=== PATIENT | male | born 1945 | race Caucasian/White ===

== ENCOUNTER → 2017-08-11 | Outpatient (CLI) | payer OTHER, MEDICARE ==
[2017-08-11 12:09] LABS: MEAN CORPUSCULAR HEMOGLOBIN 31.5 pg (27.0-33.0); MEAN CORPUSCULAR HGB CONC 33.8 g/dl (32.0-36.5); RED CELL DISTRIBUTION WIDTH 13.9 % (11.5-14.5); WHITE BLOOD COUNT 5.2 K/mm3 (4.0-10.0)
[2017-08-11 12:47] LABS: ALBUMIN 3.8 GM/DL (3.2-5.2); ALBUMIN/GLOBULIN RATIO 1.23 (1.00-1.93); ALKALINE PHOSPHATASE 62 U/L (45-117); ALT/SGPT 34 U/L (12-78); ANION GAP 8 MEQ/L (8-16); AST/SGOT 22 U/L (15-37); BILIRUBIN,TOTAL 0.6 MG/DL (0.2-1.0); BLOOD UREA NITROGEN 17 MG/DL (7-18); CALCIUM LEVEL 8.8 MG/DL (8.8-10.2); CARBON DIOXIDE LEVEL 27 MEQ/L (21-32); CHLORIDE LEVEL 106 MEQ/L (98-107); CHOLESTEROL LEVEL 211 MG/DL (<200); CREATININE FOR GFR 0.75 MG/DL (0.70-1.30); GLOMERULAR FILTRATION RATE > 60.0 (>42); GLUCOSE, FASTING 104 MG/DL (83-110); POTASSIUM SERUM 4.3 MEQ/L (3.5-5.1); SODIUM LEVEL 141 MEQ/L (136-145); TOTAL PROTEIN 6.9 GM/DL (6.4-8.2); TRIGLYCERIDES LEVEL 85 MG/DL (<150)
== END ==
LOC: M LAB 10:54
PROVIDERS: ATTEND Family Medicine
DX: N40.0 Benign prostatic hyperplasia without lower urinary tract symptoms (principal); I10 Essential (primary) hypertension

== ENCOUNTER → 2017-12-19 | Outpatient (CLI) | payer OTHER, MEDICARE ==
[2017-12-19 14:48] LABS: HEMATOCRIT 44.3 % (42.0-52.0); HEMOGLOBIN 13.8 g/dl (14.0-18.0); MEAN CORPUSCULAR HEMOGLOBIN 27.2 pg (27.0-33.0); MEAN CORPUSCULAR HGB CONC 31.2 g/dl (32.0-36.5); MEAN CORPUSCULAR VOLUME 87.2 fl (80.0-96.0); PLATELET COUNT, AUTOMATED 211 10^3/uL (150-450); RED BLOOD COUNT 5.08 10^6/uL (4.30-6.10); WHITE BLOOD COUNT 6.2 10^3/uL (4.0-10.0)
[2017-12-19 15:07] LABS: ESTIMATED AVERAGE GLUCOSE 123 MG/DL (60-110); HEMOGLOBIN A1c 5.9 %
[2017-12-19 15:21] LABS: TESTOSTERONE 296 NG/DL (241-827)
[2017-12-19 15:24] LABS: ALBUMIN/GLOBULIN RATIO 1.21 (1.00-1.93); ALKALINE PHOSPHATASE 74 U/L (45-117); ALT/SGPT 34 U/L (12-78); ANION GAP 7 MEQ/L (8-16); AST/SGOT 27 U/L (7-37); BILIRUBIN,TOTAL 0.6 MG/DL (0.2-1.0); BLOOD UREA NITROGEN 12 MG/DL (7-18); CALCIUM LEVEL 8.8 MG/DL (8.8-10.2); CARBON DIOXIDE LEVEL 29 MEQ/L (21-32); CHLORIDE LEVEL 104 MEQ/L (98-107); CHOLESTEROL LEVEL 201 MG/DL (<200); CHOLESTEROL RISK RATIO 1.844 (<5); CREATININE FOR GFR 0.82 MG/DL (0.70-1.30); GLOMERULAR FILTRATION RATE > 60.0 (>42); GLUCOSE, FASTING 90 MG/DL (70-100); HDL CHOLESTEROL 109 MG/DL (>40); LDL CHOLESTEROL 71.4 MG/DL (<100); NON-HDL-C 92 MG/DL; POTASSIUM SERUM 4.1 MEQ/L (3.5-5.1); PROSTATIC SPECIFIC AG MONITOR 5.67 NG/ML (< 4.0); SODIUM LEVEL 140 MEQ/L (136-145); TOTAL PROTEIN 7.3 GM/DL (6.4-8.2); TRIGLYCERIDES LEVEL 103 MG/DL (<150)
== END ==
LOC: M LAB 14:05
DX: R53.83 Other fatigue (principal)

== ENCOUNTER → 2018-08-07 | Outpatient (CLI) | payer OTHER, MEDICARE ==
[2018-08-07 12:51] LABS: PROSTATIC SPECIFIC AG MONITOR 5.99 NG/ML (< 4.0)
[2018-08-07 13:54] LABS: TESTOSTERONE 638 NG/DL (241-827)
== END ==
LOC: M LAB 11:49
DX: R53.83 Other fatigue (principal); N40.0 Benign prostatic hyperplasia without lower urinary tract symptoms
CPT/HCPCS: 84403

== ENCOUNTER → 2019-01-04 | Outpatient (CLI) | payer OTHER, MEDICARE ==
[2019-01-04 11:35] LABS: HEMATOCRIT 46.3 % (42.0-52.0); MEAN CORPUSCULAR HEMOGLOBIN 31.1 pg (27.0-33.0); MEAN CORPUSCULAR HGB CONC 32.4 g/dl (32.0-36.5); MEAN CORPUSCULAR VOLUME 96.1 fl (80.0-96.0); PLATELET COUNT, AUTOMATED 204 10^3/uL (150-450); RED BLOOD COUNT 4.82 10^6/uL (4.30-6.10); WHITE BLOOD COUNT 5.6 10^3/uL (4.0-10.0)
[2019-01-04 12:12] LABS: ALBUMIN 3.6 GM/DL (3.2-5.2); ALT/SGPT 28 U/L (12-78); BILIRUBIN,TOTAL 0.6 MG/DL (0.2-1.0); BLOOD UREA NITROGEN 14 MG/DL (7-18); CALCIUM LEVEL 8.8 MG/DL (8.8-10.2); CARBON DIOXIDE LEVEL 30 MEQ/L (21-32); CHLORIDE LEVEL 104 MEQ/L (98-107); CHOLESTEROL LEVEL 183 MG/DL (<200); CHOLESTEROL RISK RATIO 1.694 (<5); CREATININE FOR GFR 0.82 MG/DL (0.70-1.30); GLOMERULAR FILTRATION RATE > 60.0 (>42); GLUCOSE, FASTING 119 MG/DL (70-100); HDL CHOLESTEROL 108 MG/DL (>40); LDL CHOLESTEROL 64 MG/DL (<100); NON-HDL-C 75 MG/DL; POTASSIUM SERUM 4.3 MEQ/L (3.5-5.1); PROSTATIC SPECIFIC AG MONITOR 5.18 NG/ML (< 4.00); SODIUM LEVEL 140 MEQ/L (136-145); TOTAL PROTEIN 6.8 GM/DL (6.4-8.2); TRIGLYCERIDES LEVEL 53 MG/DL (<150)
[2019-01-04 13:23] LABS: TESTOSTERONE 467 NG/DL (241-827)
--- NOTE | 2019-01-04 13:25 | ECGEPIP ---
Stationary ECG Study [facility] Test Date: 2019-01-04 Pat Name: SUZIE WEAVER Department: Room: - Gender: M Emergency Department Technician: IRINA : 1945 Requested By: Ferdinand Mas Order Number: [id number] Reading MD: Jackie Dodge Measurements Intervals [place] Rate: 70 P: -46 [place]: 137 QRS: 57 QRSD: 154 T: 21 QT: 413 QTc: 446 Interpretive Statements ECTOPIC ATRIAL RHYTHM CHANGE IN P AXIS C/W 01/09/15 RIGHT BUNDLE BRANCH BLOCK CANNOT R/O INF J POINT ELEV (ST eLEV) WITH UNEVENESS OF BASELINE Electronically Signed On 01-04-2019 13:25:04 EST by Jackie Dodge
[2019-01-04 13:31] LABS: HEMOGLOBIN A1c 5.7 %
--- NOTE | 2019-01-04 13:43 | REP ---
Chest two views HISTORY: Hypertension Comparison: 11/03/2016 The lungs are clear. The cardiac silhouette is enlarged. The pulmonary vasculature is normal in appearance. The bony structure is intact. IMPRESSION: Cardiomegaly. Electronically Signed by Julio Ovalles MD 01/04/2019 01:35 P
== END ==
LOC: M LAB 11:09
PROVIDERS: ATTEND Family Medicine
DX: I11.9 Hypertensive heart disease without heart failure (principal); R53.83 Other fatigue; N40.1 Benign prostatic hyperplasia with lower urinary tract symptoms

== ENCOUNTER 2019-03-05 07:01 | Day surgery (SDC) | payer OTHER, MEDICARE ==
[~2019-03-05] VITALS: Ht 166.4 cm; Wt 75.7 kg
[~2019-03-05 07:01] MED LIST: ASPI81TA85 PO; CARV6.25 PO; DOXA2TAB3 PO; FINA5TAB2 PO; LOSA100T50 PO; MELO15TA28 PO; NS 1,000 ML IV ONE; OMEP10CASR PO; ROSU10TA5 PO
--- NOTE | 2019-03-05 08:09 | ROOR ---
Patient Name: Julio Menjivar Procedure Date: 03/05/2019 7:53 AM Date of : 1945 Age: 73 Room: [facility] Gender: Male Note Status: Finalized Procedure: Upper Endoscopy + Biopsies Indications: Heartburn, Exclusion of Cuellar's esophagus Providers: Robert Brand MD Referring MD: CHICO HERRERA MD Requesting Provider: Medicines: Monitored Anesthesia Care Complications: No immediate complications. Procedure: Pre-Anesthesia Assessment: - The heart rate, respiratory rate, oxygen saturations, blood pressure, adequacy of pulmonary ventilation, and response to care were monitored throughout the procedure. The Endoscope was introduced through the mouth, and advanced to the second part of duodenum. The upper GI endoscopy was accomplished without difficulty. The patient tolerated the procedure well. Findings: The Z-line was irregular and was found 40 cm from the incisors. Multiple biopsies were obtained with cold forceps for evaluation to rule out Cuellar's Esophagus randomly at the gastroesophageal junction. A small hiatal hernia was present. No other significant abnormalities were identified in a careful examination of the stomach. The exam of the duodenum was otherwise normal. Impression: - Z-line irregular, 40 cm from the incisors. - Small hiatal hernia. - Multiple biopsies were obtained at the gastroesophageal junction. - The examination was otherwise normal. Recommendation: - Patient has a contact number available for emergencies. The signs and symptoms of potential delayed complications were discussed with the patient. Return to normal activities tomorrow. Written discharge instructions were provided to the patient. - Resume previous diet. - Discharge patient to home. - Follow an antireflux regimen. - Continue present medications. - Await pathology results. - Telephone GI clinic for pathology results in 1 week. - Return to referring physician. - Check Portal Online for Path Results.([email or web address] - The findings and recommendations were discussed with the patient's family. Robert Brand MD Robert Brand MD 03/05/2019 8:08:52 AM Electronically signed by Robert Brand MD Number of Addenda: 0 Note Initiated On: 03/05/2019 7:53 AM Estimated Blood Loss: Estimated blood loss: none.
--- NOTE | 2019-03-05 08:29 | ROOR ---
Patient Name: Julio Menjivar Procedure Date: 03/05/2019 7:54 AM Date of : 1945 Age: 73 Room: [facility] Gender: Male Note Status: Finalized Procedure: Total Colonoscopy to Cecum + Cold Snare Polypectomy + Hemoclips Indications: Screening for colorectal malignant neoplasm Providers: Robert Brand MD Referring MD: CHICO HERRERA MD Requesting Provider: Medicines: Monitored Anesthesia Care Complications: No immediate complications. Procedure: Pre-Anesthesia Assessment: - The heart rate, respiratory rate, oxygen saturations, blood pressure, adequacy of pulmonary ventilation, and response to care were monitored throughout the procedure. The Colonoscope was introduced through the anus and advanced to the cecum, identified by appendiceal orifice and ileocecal valve. The colonoscopy was performed without difficulty. The patient tolerated the procedure well. The quality of the bowel preparation was excellent. Findings: The perianal and digital rectal examinations were normal. Non-bleeding internal hemorrhoids were found during retroflexion. The hemorrhoids were small and Grade I (internal hemorrhoids that do not prolapse). A medium polyp was found at 20 cm proximal to the anus. The polyp was sessile. The polyp was removed with a cold snare. Resection and retrieval were complete. To prevent bleeding after the polypectomy, three hemostatic clips were successfully placed (MR conditional). There was no bleeding at the end of the procedure. Two sessile polyps were found in the ascending colon. The polyps were small in size. These polyps were removed with a cold snare. Resection and retrieval were complete. The exam was otherwise without abnormality on direct and retroflexion views. Impression: - Non-bleeding internal hemorrhoids. - One medium polyp at 20 cm proximal to the anus, removed with a cold snare. Resected and retrieved. Clips (MR conditional) were placed. - Two small polyps in the ascending colon, removed with a cold snare. Resected and retrieved. - The examination was otherwise normal on direct and retroflexion views. - The exam was otherwise normal to the cecum. Recommendation: - Patient has a contact number available for emergencies. The signs and symptoms of potential delayed complications were discussed with the patient. Return to normal activities tomorrow. Written discharge instructions were provided to the patient. - High fiber diet. - Discharge patient to home. - Continue present medications. - Await pathology results. - Telephone GI clinic for pathology results in 1 week. - Repeat colonoscopy for surveillance based on pathology results. - Return to referring physician. - Check Portal Online for Path Results.([email or web address]) - The findings and recommendations were discussed with the patient's family. Robert Brand MD Robert Brand MD 03/05/2019 8:29:26 AM Electronically signed by Robert Brand MD Number of Addenda: 0 Note Initiated On: 03/05/2019 7:54 AM Estimated Blood Loss: Estimated blood loss: none.
[2019-03-05] MEDS ORDERED: LIDOCAINE 2% INJ 100 MG/5 ML SDV (FOR ANES.) As Ordered ONE (08:49)
[2019-03-05] MEDS ORDERED: PROPOFOL 200 MG/20 ML VIAL As Ordered ONE (08:49)
[2019-03-05 08:55] VITALS: BP 155/85
== END 2019-03-05 09:11 | disposition home or self-care (01) ==
LOC: M OPP 07:01
PROVIDERS: ATTEND Internal Medicine Gastroenterology
DX: D12.2 Benign neoplasm of ascending colon (principal); D12.6 Benign neoplasm of colon, unspecified; K64.0 First degree hemorrhoids; K22.8 Other specified diseases of esophagus; K44.9 Diaphragmatic hernia without obstruction or gangrene; R12 Heartburn; Z12.11 Encounter for screening for malignant neoplasm of colon

== ENCOUNTER → 2019-07-02 | Outpatient (CLI) | payer OTHER, MEDICARE ==
[~2019-07-02] MED LIST changes: -NS 1,000 ML IV ONE; -ROSU10TA5 PO; +ROSU10TA6 PO
[2019-07-02 16:14] LABS: HEMOGLOBIN A1c 6.1 %
[2019-07-02 16:25] LABS: PROSTATIC SPECIFIC AG MONITOR 6.41 NG/ML (< 4.00); THYROID STIMULATING HORMONE 1.35 uIU/ML (0.358-3.740)
== END ==
LOC: M LAB 15:14
PROVIDERS: ATTEND Family Medicine
DX: E29.1 Testicular hypofunction (principal); E03.9 Hypothyroidism, unspecified; R53.83 Other fatigue

== ENCOUNTER → 2019-09-11 | Outpatient (CLI) | payer MEDICARE, OTHER | LOC: M LAB 13:56 | PROVIDERS: ATTEND Family Medicine | DX: N41.0 Acute prostatitis (principal); Z79.82 Long term (current) use of aspirin; Z79.899 Other long term (current) drug therapy ==

== ENCOUNTER → 2020-01-14 | Outpatient (CLI) | payer MEDICARE, OTHER ==
[2020-01-14 11:52] LABS: HEMATOCRIT 39.8 % (42.0-52.0); HEMOGLOBIN 12.8 g/dl (13.5-17.5); MEAN CORPUSCULAR HGB CONC 32.2 g/dl (32.0-36.5); MEAN CORPUSCULAR VOLUME 93.2 fl (80.0-96.0); PLATELET COUNT, AUTOMATED 214 10^3/uL (150-450); RED BLOOD COUNT 4.27 10^6/uL (4.30-6.10); WHITE BLOOD COUNT 5.7 10^3/uL (4.0-10.0)
[2020-01-14 12:26] LABS: ALBUMIN 3.4 GM/DL (3.2-5.2); ALT/SGPT 18 U/L (12-78); BILIRUBIN,TOTAL 0.5 MG/DL (0.2-1.0); BLOOD UREA NITROGEN 13 MG/DL (7-18); CALCIUM LEVEL 8.7 MG/DL (8.8-10.2); CARBON DIOXIDE LEVEL 29 MEQ/L (21-32); CHLORIDE LEVEL 106 MEQ/L (98-107); CHOLESTEROL LEVEL 182 MG/DL (<200); CHOLESTEROL RISK RATIO 2.333 (<5); CREATININE FOR GFR 0.73 MG/DL (0.70-1.30); GLOMERULAR FILTRATION RATE > 60.0 (>42); GLUCOSE, FASTING 103 MG/DL (70-100); HDL CHOLESTEROL 78 MG/DL (>40); LDL CHOLESTEROL 89 MG/DL (<100); NON-HDL-C 104 MG/DL; POTASSIUM SERUM 3.9 MEQ/L (3.5-5.1); PROSTATIC SPECIFIC AG MONITOR 4.61 NG/ML (< 4.00); SODIUM LEVEL 140 MEQ/L (136-145); TESTOSTERONE 422 NG/DL (241-827); TOTAL PROTEIN 6.5 GM/DL (6.4-8.2); TRIGLYCERIDES LEVEL 74 MG/DL (<150)
== END ==
LOC: M LAB 10:43
PROVIDERS: ATTEND Family Medicine
DX: I10 Essential (primary) hypertension (principal); R53.83 Other fatigue; E06.9 Thyroiditis, unspecified; E29.1 Testicular hypofunction; Z79.82 Long term (current) use of aspirin; Z79.899 Other long term (current) drug therapy

== ENCOUNTER → 2020-03-31 | Outpatient (CLI) | payer MEDICARE, OTHER ==
[2020-03-31 10:15] LABS: APPEARANCE, URINE CLEAR (CLEAR); BACTERIA, URINE AUTO NEGATIVE (NEGATIVE); BILIRUBIN, URINE AUTO NEGATIVE (NEGATIVE); BLOOD, URINE BLOOD NEGATIVE (NEGATIVE); COLOR, URINE YELLOW (YELLOW); GLUCOSE, URINE (UA) AUTO NEGATIVE (NEGATIVE); KETONE, URINE AUTO NEGATIVE (NEGATIVE); LEUKOCYTE ESTERASE, URINE AUTO NEGATIVE (NEGATIVE); MUCUS, URINE SMALL (NEGATIVE); NITRITE, URINE AUTO NEGATIVE (NEGATIVE); PROTEIN, URINE AUTO NEGATIVE (NEGATIVE); RBC, URINE AUTO 2 /HPF (0-3); SPECIFIC GRAVITY URINE AUTO 1.012 (1.002-1.035); SQUAMOUS EPITHELIAL CELL UR AU 0 /HPF (0-6); UROBILINOGEN, URINE AUTO 0.2 mg/dL (0.0-2.0); WBC, URINE AUTO 1 /HPF (0-3)
[2020-03-31 10:15] LABS: HEMATOCRIT 40.8 % (42.0-52.0); MEAN CORPUSCULAR HEMOGLOBIN 28.4 pg (27.0-33.0); MEAN CORPUSCULAR HGB CONC 31.9 g/dl (32.0-36.5); MEAN CORPUSCULAR VOLUME 89.3 fl (80.0-96.0); PLATELET COUNT, AUTOMATED 222 10^3/uL (150-450); RED BLOOD COUNT 4.57 10^6/uL (4.30-6.10); WHITE BLOOD COUNT 4.9 10^3/uL (4.0-10.0)
[2020-03-31 10:48] LABS: ALBUMIN 3.5 GM/DL (3.2-5.2); ALT/SGPT 25 U/L (12-78); BILIRUBIN,TOTAL 0.3 MG/DL (0.2-1.0); BLOOD UREA NITROGEN 13 MG/DL (7-18); CARBON DIOXIDE LEVEL 29 MEQ/L (21-32); CHLORIDE LEVEL 107 MEQ/L (98-107); CHOLESTEROL LEVEL 189 MG/DL (<200); CHOLESTEROL RISK RATIO 2.423 (<5); GLOMERULAR FILTRATION RATE > 60.0 (>42); GLUCOSE, FASTING 116 MG/DL (70-100); HDL CHOLESTEROL 78 MG/DL (>40); LDL CHOLESTEROL 91 MG/DL (<100); NON-HDL-C 111 MG/DL; PROSTATIC SPECIFIC AG MONITOR 3.66 NG/ML (< 4.00); SODIUM LEVEL 141 MEQ/L (136-145); TOTAL PROTEIN 6.9 GM/DL (6.4-8.2); TRIGLYCERIDES LEVEL 101 MG/DL (<150)
== END ==
LOC: M LAB 09:37
PROVIDERS: ATTEND Family Medicine
DX: I10 Essential (primary) hypertension (principal); R53.83 Other fatigue; N39.0 Urinary tract infection, site not specified

== ENCOUNTER → 2020-05-19 | Outpatient (REF) | payer MEDICARE, OTHER ==
[2020-05-19 18:50] LABS: APPEARANCE, URINE CLEAR (CLEAR); BACTERIA, URINE AUTO NEGATIVE (NEGATIVE); BILIRUBIN, URINE AUTO NEGATIVE (NEGATIVE); BLOOD, URINE BLOOD NEGATIVE (NEGATIVE); COLOR, URINE STRAW (YELLOW); GLUCOSE, URINE (UA) AUTO NEGATIVE (NEGATIVE); KETONE, URINE AUTO NEGATIVE (NEGATIVE); LEUKOCYTE ESTERASE, URINE AUTO NEGATIVE (NEGATIVE); NITRITE, URINE AUTO NEGATIVE (NEGATIVE); PROTEIN, URINE AUTO NEGATIVE (NEGATIVE); RBC, URINE AUTO 0 /HPF (0-3); SPECIFIC GRAVITY URINE AUTO 1.003 (1.002-1.035); SQUAMOUS EPITHELIAL CELL UR AU 0 /HPF (0-6); UROBILINOGEN, URINE AUTO 0.2 mg/dL (0.0-2.0); WBC, URINE AUTO 0 /HPF (0-3)
== END ==
LOC: M SMT 16:40
PROVIDERS: ATTEND Nurse Practitioner Women's Health
DX: R31.29 Other microscopic hematuria (principal)

== ENCOUNTER → 2020-09-28 | Outpatient (CLI) | payer MEDICARE, OTHER ==
[~2020-09-28] MED LIST changes: -ASPI81TA85 PO; +ASPI81TA86 PO
[2020-09-28 13:30] LABS: HEMATOCRIT 38.3 % (42.0-52.0); HEMOGLOBIN 11.6 g/dl (13.5-17.5); MEAN CORPUSCULAR HEMOGLOBIN 25.9 pg (27.0-33.0); MEAN CORPUSCULAR HGB CONC 30.3 g/dl (32.0-36.5); MEAN CORPUSCULAR VOLUME 85.5 fl (80.0-96.0); PLATELET COUNT, AUTOMATED 258 10^3/uL (150-450); RED BLOOD COUNT 4.48 10^6/uL (4.30-6.10); WHITE BLOOD COUNT 5.3 10^3/uL (4.0-10.0)
[2020-09-28 13:51] LABS: ALBUMIN 3.6 GM/DL (3.2-5.2); ALT/SGPT 19 U/L (12-78); BILIRUBIN,TOTAL 0.6 MG/DL (0.2-1.0); BLOOD UREA NITROGEN 18 MG/DL (7-18); CALCIUM LEVEL 9.3 MG/DL (8.8-10.2); CARBON DIOXIDE LEVEL 27 MEQ/L (21-32); CHLORIDE LEVEL 103 MEQ/L (98-107); CHOLESTEROL LEVEL 206 MG/DL (<200); CHOLESTEROL RISK RATIO 2.191 (<5); CREATININE FOR GFR 0.78 MG/DL (0.70-1.30); GLOMERULAR FILTRATION RATE > 60.0 (>42); GLUCOSE, FASTING 100 MG/DL (70-100); HDL CHOLESTEROL 94 MG/DL (>40); LDL CHOLESTEROL 99 MG/DL (<100); NON-HDL-C 112 MG/DL; PROSTATIC SPECIFIC AG MONITOR 5.02 NG/ML (< 4.00); SODIUM LEVEL 137 MEQ/L (136-145); TESTOSTERONE 392 NG/DL (241-827); TOTAL PROTEIN 7.2 GM/DL (6.4-8.2); TRIGLYCERIDES LEVEL 67 MG/DL (<150)
[2020-09-28 15:16] LABS: HEMOGLOBIN A1c 6.1 %
== END ==
LOC: M LAB 11:47
PROVIDERS: ATTEND Family Medicine
DX: I10 Essential (primary) hypertension (principal); R53.83 Other fatigue; E03.9 Hypothyroidism, unspecified

== ENCOUNTER 2021-01-19 17:20 | Inpatient (IN) | payer MEDICARE, OTHER ==
[~2021-01-19] VITALS: Ht 165.1 cm; Wt 75.4 kg
[2021-01-19] VITALS (7 sets, daily range): BP systolic 96–222; BP diastolic 51–99
[2021-01-19] MEDS ORDERED: CLOP75TA2 PO (17:32)
[2021-01-19 18:09] LABS: BASO % 0.7 % (0.0-1.0); EOS # 0.3 10^3/uL (0.0-0.5); EOS % 4.5 % (0.0-3.0); LYMPH % 17.8 % (24.0-44.0); MEAN CORPUSCULAR HEMOGLOBIN 22.4 pg (27.0-33.0); MEAN CORPUSCULAR VOLUME 79.9 fl (80.0-96.0); MONO # 0.6 10^3/uL (0.0-0.8); MONO % 10.5 % (2.0-8.0); NEUTROPHILS # 3.7 10^3/uL (1.5-8.5); NEUTROPHILS % 66.1 % (36.0-66.0); PLATELET COUNT, AUTOMATED 260 10^3/uL (150-450); RED BLOOD COUNT 3.13 10^6/uL (4.30-6.10); WHITE BLOOD COUNT 5.5 10^3/uL (4.0-10.0)
[2021-01-19 18:19] LABS: INR 0.94; PROTHROMBIN TIME 12.8 SECONDS (12.5-14.3)
[2021-01-19 18:20] LABS: PARTIAL THROMBOPLASTIN TIME 30.4 SECONDS (24.2-38.5)
--- NOTE | 2021-01-19 18:34 | REP ---
INDICATION: SOB COMPARISON: 01/04/2019 TECHNIQUE: Portable AP view of the chest FINDINGS: The mediastinum and cardiac silhouette are stable and within normal limits for portable technique. The lung silveira are clear without acute consolidation, effusion, or pneumothorax. Skeletal structures are intact. IMPRESSION: No acute cardiopulmonary process appreciated. <Electronically signed by Hector Saavedra > 01/19/21 1729
[2021-01-19 18:36] LABS: ALBUMIN 3.6 GM/DL (3.2-5.2); ALT/SGPT 21 U/L (12-78); BILIRUBIN,DIRECT < 0.1 MG/DL (0.0-0.2); BILIRUBIN,TOTAL 0.2 MG/DL (0.2-1.0); BLOOD UREA NITROGEN 19 MG/DL (7-18); CALCIUM LEVEL 8.4 MG/DL (8.8-10.2); CARBON DIOXIDE LEVEL 28 MEQ/L (21-32); CHLORIDE LEVEL 107 MEQ/L (98-107); CK-MB VALUE MASS < 1.0 NG/ML (<3.6); CPK CREATINE PHOSPHOKINASE 59 U/L (39-308); CREATININE FOR GFR 0.76 MG/DL (0.70-1.30); FREE T4 0.74 NG/DL (0.76-1.46); GLOMERULAR FILTRATION RATE > 60.0 (>42); GLUCOSE, FASTING 122 MG/DL (70-100); MB/CK RELATIVE INDEX 1.69 (< OR =4); NT-PRO BNP 131 PG/ML (<450); POTASSIUM SERUM 3.6 MEQ/L (3.5-5.1); SODIUM LEVEL 140 MEQ/L (136-145); TOTAL PROTEIN 6.8 GM/DL (6.4-8.2); TROPONIN I < 0.02 NG/ML (< 0.10)
[2021-01-19] MEDS ORDERED: ZOLP5TAB PO (19:04)
[2021-01-19] MEDS ORDERED: HYDR12CA PO (19:04)
[2021-01-19] MEDS ORDERED: OMEP-218 PO (19:04)
[2021-01-19] MEDS ORDERED: ATOR1TAB21 PO (19:04)
[2021-01-19 19:12] LABS: RSV AMPLIFICATION NEGATIVE (NEGATIVE)
[2021-01-19 19:40] LABS: FERRITIN 5 NG/ML (26-388); IRON (FE) 23 UG/DL (65-175); PERCENT SATURATION 5.2 % (19.7-50.0); TOTAL IRON BINDING CAPACITY 443 UG/DL (250-450)
[2021-01-19] MEDS ORDERED: diphenhydrAMINE 50MG CAP PO STA (19:53)
[2021-01-19] MEDS ORDERED: zolPIDEM TARTRATE 5 MG TAB PO PRN (19:55)
[2021-01-19] MEDS ORDERED: PANTOPRAZOLE 40MG VIAL (C9113 PER 1) IV ONE (20:00)
[2021-01-19] MEDS ORDERED: NITROGLYCERIN 2% OINT 1 GM *U/D* PKT TOP SCH (20:00)
[2021-01-19] MEDS ORDERED: ACETAMINOPHEN 500 MG TAB PO ONE (20:00)
[2021-01-19] MEDS: SENOKOT S TAB PO SCH (20:02)
[2021-01-19] MEDS: SUCRALFATE 1 GM TAB PO SCH (20:03)
[2021-01-19] MEDS: ATORVASTATIN 20 MG TAB PO SCH (20:13)
[2021-01-19] MEDS: FINASTERIDE 5 MG TAB PO SCH (20:13)
[2021-01-19] MEDS: LOSARTAN 50MG TABLET PO SCH (20:13)
[2021-01-19] MEDS: CARVedilol 6.25 MG TAB PO SCH (20:13)
--- NOTE | 2021-01-19 20:34 | HPEPDOC ---
[facility] Medical History & Physical Date of Admission Jan 19, 2021 Date of Service: Jan 19, 2021 History and Physical CHIEF COMPLAINT: Lightheaded, dizzy, short of breath ,worn down for the past 2 weeks"" HISTORY OF PRESENT ILLNESS: 75-year-old male with prior history of CAD, stent 2, one and half years ago on chronic Plavix. 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 Vale's office complaining of shortness of breath, feeling worn down, lightheaded and d fernanda for the past 2 weeks. Patient denies any nonsteroidal anti-inflammatory use, but is chronically on Plavix. Dr. Brand did an EGD and colonoscopy on . EGD shows chronic inflammation in the esophagus. Colonoscopy showed ascending colon polyp and internal hemorrhoids, pathology showing adenomatous and tubular adenoma. Patient denies coffee-ground emesis, hematemesis, gross hematuria, hemoptysis, but admits to having occasional bright red blood lining his stools as well as occasional black dark stools. He takes Prilosec 20 mg twice a day. At his rocket test fire worker's office. He denied any chest pain, pressure, tightness, nausea, vomiting. He has noted increasing abdominal girth without weight gain or lower extremity edema. His Caty [phone]. Has also noted left flank being more swollen than the right side and patient complaining of feeling "swollen." In the emergency room he was found to have a hemoglobin of 7 with baseline of 11.6 in September 2020.Stool sample and iron studies were still pending. He was found to have a blood pressure of 207/81, but denies any headache, changes in vision, chest pain, pressure, tightness, but admits to not having taken his evening medications. Hospitalist was asked to admit the patient for symptomatic anemia with hemoglobin of 7 from baseline of 11.6, and hypertensive urgency with blood pressure of 207/81. PAST MEDICAL HISTORY: CAD, stent 2 on chronic Plavix for the past 1-1/2 years told by his rocket test fire worker to continue plavix during this week's visit, one and half years ago on chronic Plavix. BPH with hematuria, bladder mass with negative pathology, hypertension, gastroesophageal reflux disease, chronic inflammation in the esophagus on EGD by Dr. Brand in February 2019, internal hemorrhoids and adenomatous tubular polyps on colonoscopy by Dr. Brand in February 2019 PAST SURGICAL HISTORY: Stent 2, one and a half years ago, cystoscopy, coronary angiogram SOCIAL HISTORY: Full code, former smoker, quit in 1979 after pack a day, drinks wine 1-2 glasses a day, owns a bar, healthcare proxy. His Caty [phone].. Denies recreational drug use FAMILY HISTORY: Mother age 90. Alzheimer's dementia. Father disease age 80 CAD, [place] ALLERGIES: Please see below. REVIEW OF SYSTEMS: CONSTITUTIONAL: Denies weight changes, changes in appetite, unusual masses or lumps, rash, changes in sleep habits HEENT: Denies sore throat, ear pain, ear discharge, visual changes, blurred vision, diplopia, nasal discharge, nasal congestion CARDIOVASCULAR: Complains of shortness of breath without chest pain. Complains of lightheadedness and dizziness RESPIRATORY: Complains of shortness of breath without fever, chills or cough GASTROINTESTINAL: Complains of abdominal distention and flank swelling, some abdominal discomfort. No nausea, vomiting, history of internal hemorrhoids, esophageal chronic inflammation, history of adenomatous tubular polyps. Complains of occasional bright red blood lining his stool and occasional black stool GENITOURINARY: BPH and hematuria. Bladder mass with negative pathology followed by Dr. Toro urologist, complains of left flank pain without hematuria SKIN: Complains of pallor MUSCULOSKELETAL: Denies joint pains, muscle aches, myalgias NEUROLOGICAL: Denies any paresthesias or weakness PSYCHIATRIC: Denies anxiety, depression ENDOCRINE: Denies polyuria, polydipsia, weight changes, hypersomnia, insomnia, changes in appetite HEMATOLOGIC/LYMPHATIC: Complains of shortness of breath, feeling worn down, lightheaded, dizzy HOME MEDICATIONS: Please see below. PHYSICAL EXAMINATION: VITAL SIGNS: See below GENERAL APPEARANCE: Pale, speaks in full sentences. Awake, alert, oriented 3 HEENT: Anicteric, no jaundice, no JVD, no thyromegaly CARDIOVASCULAR: S1, S2 regular rate rhythm. Nondisplaced point of maximal impulse no S3 LUNGS: Clear to auscultation. No wheezing, rales or rhonchi. Air entry is equal. No kyphoscoliosis. No adventitious breath sounds ABDOMEN: Positive bowel sounds, soft, nontender, slight distention, left flank greater than right. No rebound, no guarding. No abdominal bruit. , No CVA tenderness EXTREMITIES: No pitting edema, no cyanosis LABORATORY DATA: See below. IMAGING: CT abdomen and pelvis pending MICROBIOLOGY: Please see below. ASSESSMENT/PLAN: 75-year-old male with prior history of CAD, stent 2, one and half years ago on chronic Plavix. 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 Vale's office complaining of shortness of breath, feeling worn down, lightheaded and dizzy for the past 2 weeks. Patient denies any nonsteroidal anti-inflammatory use, but is chronically on Plavix. Dr. Brand did an EGD and colonoscopy on . EGD shows chronic inflammation in the esophagus. Colonoscopy showed ascending colon polyp and internal hemorrhoids, pathology showing adenomatous and tubular adenoma. Patient denies coffee-ground emesis, hematemesis, gross hematuria, hemoptysis, but admits to having occasional bright red blood lining his stools as well as occasional black dark stools. He takes Prilosec 20 mg twice a day. At his rocket test fire worker's office. He denied any chest pain, pressure, tightness, nausea, vomiting. He has noted increasing abdominal girth without weight gain or lower extremity edema. His Caty [phone]. Has also noted left flank being more swollen than the right side and patient complaining of feeling "swollen." In the emergency room he was found to have a hemoglobin of 7 with baseline of 11.6 in September 2020.Stool sample and iron studies were still pending. He was found to have a blood pressure of 207/81, but denies any h eadache, changes in vision, chest pain, pressure, tightness, but admits to not having taken his evening medications. Hospitalist was asked to admit the patient for symptomatic anemia with hemoglobin of 7 from baseline of 11.6, and hypertensive urgency with blood pressure of 207/81. Symptomatic anemia -Patient will be transfused 2 units RBC. Consent has been signed. Recheck H&H after blood transfusion. Check iron studies, Hemoccult stool and peripheral blood smear with reticulocyte count. Patient was instructed by his rocket test fire worker to continue Plavix due to history of stents. It is unclear why the patient continues to take Plavix one and a half years after his stents have been placed. If patient has Hemoccult stool or overt GI bleed. His Plavix will be withheld. Possible GI bleed/ possible acute blood loss anemia -Patient currently denies any recent bright red blood per rectum or black stools. He admits to having this in the past, but none recently. Due to his coronary stents. His Plavix will be continued until we see that he is actively having bright red blood per rectum, melena, coffee-ground emesis or hematemesis, at which point we will stop his Plavix. -Since we do not have a heme positive stool and the need for Plavix is much more important for his stents. We will continue the Plavix for now and transfuse as well as empirically treat for possible acute upper GI bleed with Carafate every before meals at bedtime as well as changing his Prilosec 20 mg twice a day 2. Protonix 40 mg daily. -If his stool is positive, or continued drop in his hemoglobin after 2 units RBC transfusion, or he has active bleeding, he will be kept nothing by mouth and GI or general surgery will be consulted. 2. Repeat EGD and colonoscopy Hypertensive urgency -Patient may be resumed back on his home medications including Coreg and losartan with holding parameters. For more immediate control. He has been given clonidine as well as nitroglycerin 1 inch topically every 4 hourly with holding parameters. . He has been admitted to PCU in case we need to give intravenous labetalol or IV metoprolol. History of chronic inflammation in the esophagus/internal hemorrhoids/colonic polyps -Changed his Prilosec 20 twice a day 2. Protonix 40 mg daily CAD, stent 2 on chronic Plavix -Since we do not have active GI bleed, and no stool showing positive blood. We will continue his Plavix for his stents. If patient demonstrates active GI bleed. His Plavix will be held and he will be kept nothing by mouth, GI or general surgery will be consulted for EGD. . He has been started on Protonix 40 daily and Carafate every before meals and at bedtime. Benign prostatic hypertrophy with history of microscopic hematuria -He may be continued on his home medications and outpatient follow-up with Dr. Toro as recommended Gastroesophageal reflux disease -On Protonix 40 daily History of tobacco abuse -Quit in 1980s Active alcohol use -Patient's says that he socially drinks 1-2 glasses of wine daily. He denies any history of alcohol abuse, but will monitor clinically. Abdominal distention/left flank pain -Check CT abdomen and pelvis. Check UA, urine C&S. DVT prophylaxis: Compression stockings Diet: 2 g sodium CODE STATUS: Full code Vital Signs Vital Signs Date Time Temp Pulse Resp B/P (MAP) Pulse Ox O2 Delivery O2 Flow Rate FiO2 01/19/21 20:07 207/81 01/19/21 20:05 98.1 61 19 98 Room Air Laboratory Data Labs 24H Laboratory Tests 2 01/19/21 17:53: Immature Granulocyte % (Auto) 0.4, Neutrophils (%) (Auto) 66.1H, Lymphocytes (%) (Auto) 17.8L, Monocytes (%) (Auto) 10.5H, Eosinophils (%) (Auto) 4.5H, Basophils (%) (Auto) 0.7, Neutrophils # (Auto) 3.7, Lymphocytes # (Auto) 1.0L, Monocytes # (Auto) 0.6, Eosinophils # (Auto) 0.3, Basophils # (Auto) 0.0, Reticulocyte # (a uto) 49.8, Nucleated Red Blood Cells % (auto) 0.0, Differential Slide Review Report, Peripheral Blood Smear Path Consult PERIPHERAL SMEAR, Percent Reticulocyte Count 1.5, Reticulocyte Hemoglobin Equivalent 16.1L, Prothrombin Time 12.8, Prothromb Time International Ratio 0.94, Activated Partial Throm boplast Time 30.4, Anion Gap 5L, Glomerular Filtration Rate > 60.0, Calcium Level 8.4L, Iron Level 23L, Total Iron Binding Capacity 443, Transferrin % Saturation 5.2L, Ferritin 5L, Total Bilirubin 0.2, Direct Bilirubin < 0.1, Aspartate Amino Transf (AST/SGOT) 11, Alanine Aminotransferase (ALT/SGPT) 21, Alkaline Phosphatase 79, Total Creatine Kinase 59, Creatine Kinase MB < 1.0, Creatine Kinase MB Relative Index 1.69, Troponin I < 0.02, RT-Rtb-Z-Type Natriuretic Peptide 131, Total Protein 6.8, Albumin 3.6, Albumin/Globulin Ratio 1.1, Thyroid Stimulating Hormone (TSH) 1.520, Free Thyroxine 0.74L, Coronavirus (COVID-19)(PCR) NEGATIVE, Influenza Type A (RT-PCR) NEGATIVE, Influenza Type B (RT-PCR) NEGATIVE, Respiratory Syncytial Virus (PCR) NEGATIVE CBC/BMP Laboratory Tests 01/19/21 17:53 Home Medications Scheduled Atorvastatin Calcium (Atorvastatin Calcium) 20 Mg Tablet, 20 MG PO QHS Carvedilol (Carvedilol) 6.25 Mg Tablet, 6.25 MG PO BID Clopidogrel Bisulfate (Clopidogrel) 75 Mg Tablet, 75 MG PO DAILY Doxazosin Mesylate (Doxazosin) 2 Mg Tablet, 2 MG PO BID Finasteride (Finasteride) 5 Mg Tablet, 5 MG PO QHS Hydrochlorothiazide (Hydrochlorothiazide) 12.5 Mg Capsule, 12.5 MG PO DAILY Losartan Potassium (Losartan Potassium) 100 Mg Tablet, 100 MG PO QHS Omeprazole (Omeprazole) 20 Mg Capsule.dr, 20 MG PO BID Scheduled PRN Zolpidem Tartrate (Zolpidem Tartrate) 5 Mg Tablet, 5 MG PO QHS PRN for SLEEP Allergies Coded Allergies: No Known Allergies (Unverified , 02/27/19) A-FIB/CHADSVASC A-FIB History Current/History of A-Fib/PAF?: No Current PO Anticoag Therapy: No Age/Risk Factor Scoring CHADSVASC: CHADSVASC Response (Comments) Value Age Risk Factor Age < 65 years old 0 Gender Risk Factor Male 0 Hx of CHF No 0 Hx of HTN Yes 1 Hx of Stroke/TIA/or VTE No 0 Hx of Diabetes No 0 Hx of Vascular Disease No 0 Total 1 Treatment Treatment ordered: NONE HELDER SANON MD Jan 19, 2021 20:34
[2021-01-19] MEDS ORDERED: cloNIDine 0.1MG TABLET PO ONE (21:00)
[2021-01-20] VITALS (10 sets, daily range): BP systolic 116–170; BP diastolic 59–86
[2021-01-20] MEDS ORDERED: GASTROGRAFIN SOLUTION 30ML (Q9963) As Ordered ONE (01:44)
[2021-01-20] MEDS: GASTROGRAFIN SOLUTION 30ML PO SCH ×2 (01:54→02:29)
[2021-01-20] MEDS ORDERED: ISOVUE-370 76% 100ML VIAL As Ordered ONE (02:17)
[2021-01-20 02:56] LABS: BASO % 0.9 % (0.0-1.0); EOS # 0.2 10^3/uL (0.0-0.5); HEMATOCRIT 28.5 % (42.0-52.0); HEMOGLOBIN 8.5 g/dl (13.5-17.5); LYMPH % 21.9 % (24.0-44.0); MEAN CORPUSCULAR HEMOGLOBIN 24.3 pg (27.0-33.0); MEAN CORPUSCULAR HGB CONC 29.8 g/dl (32.0-36.5); MEAN CORPUSCULAR VOLUME 81.4 fl (80.0-96.0); MONO # 0.6 10^3/uL (0.0-0.8); MONO % 12.8 % (2.0-8.0); NEUTROPHILS # 2.6 10^3/uL (1.5-8.5); NEUTROPHILS % 59.2 % (36.0-66.0); PLATELET COUNT, AUTOMATED 219 10^3/uL (150-450); WHITE BLOOD COUNT 4.4 10^3/uL (4.0-10.0)
[2021-01-20 03:27] LABS: BLOOD UREA NITROGEN 16 MG/DL (7-18); CALCIUM LEVEL 8.2 MG/DL (8.8-10.2); CARBON DIOXIDE LEVEL 31 MEQ/L (21-32); CHLORIDE LEVEL 108 MEQ/L (98-107); CK-MB VALUE MASS < 1.0 NG/ML (<3.6); CPK CREATINE PHOSPHOKINASE 50 U/L (39-308); CREATININE FOR GFR 0.78 MG/DL (0.70-1.30); GLOMERULAR FILTRATION RATE > 60.0 (>42); GLUCOSE, FASTING 94 MG/DL (70-100); LDH LACTATE DEHYDROGENASE 148 U/L (87-241); POTASSIUM SERUM 3.6 MEQ/L (3.5-5.1); SODIUM LEVEL 141 MEQ/L (136-145); TROPONIN I < 0.02 NG/ML (< 0.10)
[2021-01-20] MEDS ORDERED: NS 1,000 ML IV SCH (04:00)
--- NOTE | 2021-01-20 04:30 | REPVR ---
PROCEDURE INFORMATION: Exam: CT Abdomen And Pelvis With Contrast Exam date and time: 01/19/2021 7:57 PM Age: 75 years old Clinical indication: Bloating and other: Acute anemia; Additional info: Abd distention /back pain TECHNIQUE: Imaging protocol: Computed tomography of the abdomen and pelvis with contrast. Radiation optimization: All CT scans at this facility use at least one of these dose optimization techniques: automated exposure control; mA and/or kV adjustment per patient size (includes targeted exams where dose is matched to clinical indication); or iterative reconstruction. Contrast material: ISO; Contrast volume: 100 ml; Contrast route: INTRAVENOUS (IV); Other contrast: Oral, ggraphin, 600; COMPARISON: No relevant prior studies available. FINDINGS: Lungs: Slight subpleural interstitial prominence in the lung bases. Liver: Normal. No mass. Gallbladder and bile ducts: Normal. No calcified stones. No ductal dilation. Pancreas: Normal. No ductal dilation. Spleen: Normal. No splenomegaly. Adrenal glands: Normal. No mass. Kidneys and ureters: There is a right renal cyst measuring 8 mm which is too small to characterize. Stomach and bowel: There are a few colonic diverticula without diverticulitis. Appendix: A normal appendix is seen. Intraperitoneal space: Unremarkable. No free air. No significant fluid collection. Vasculature: There is mild calcification of the abdominal aorta with extension into the iliac arteries. Lymph nodes: Unremarkable. No enlarged lymph nodes. Urinary bladder: Distention of the urinary bladder extending to the upper L5 level. Reproductive: There is moderate enlargement of the prostate, primarily the median lobe which protrudes into the bladder floor. Bones/joints: Degenerative changes of the lumbar spine with slight anterior wedge configuration of T12 and L1 and to a lesser degree T11 which appear to be chronic. Soft tissues: Unremarkable. IMPRESSION: 1. Moderate prostatic enlargement, particularly the median lobe which protrudes into the bladder floor. There is distention of the urinary bladder which suggests urinary retention. 2. Otherwise negative CT abdomen/pelvis. No bowel distention. COMMENTS: Consistent with the [employer]'s Incidental Findings Committee white paper (J Am Adeola Radiol 2018): Any incidental renal lesion less than 1 cm or classified as too small to characterize, or any incidental cystic renal lesion characterized as simple-appearing, is likely benign. No follow-up imaging is recommended for these lesions per consensus recommendations based on imaging criteria. Electronically signed by: Joel Saunders On 01/20/2021 04:30:23 AM
[2021-01-20] MEDS: SUCRALFATE 1 GM TAB PO SCH ×4 (08:27→21:39)
[2021-01-20] MEDS ORDERED: PREVNAR 13 VACCINE SYRINGE IM ONE (09:00)
[2021-01-20] MEDS: SENOKOT S TAB PO SCH ×2 (09:28→21:00)
[2021-01-20] MEDS: CLOPIDOGREL 75 MG TAB PO SCH (09:29)
[2021-01-20] MEDS: hydroCHLOROthiazide 12.5 MG CAPSULE PO SCH (09:29)
[2021-01-20] MEDS: PANTOPRAZOLE 40MG TAB (PROTONIX) PO SCH (09:29)
[2021-01-20] MEDS: CARVedilol 6.25 MG TAB PO SCH ×2 (09:30→21:39)
[2021-01-20 10:25] LABS: CK-MB VALUE MASS 1.9 NG/ML (<3.6); CPK CREATINE PHOSPHOKINASE 217 U/L (39-308); MB/CK RELATIVE INDEX 0.88 (< OR =4); TROPONIN I < 0.02 NG/ML (< 0.10)
--- NOTE | 2021-01-20 11:10 | IPNPDOC ---
Text Note Date of Service The patient was seen on 01/20/21. 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 Patient presented to Dr. Vale's office complaining of shortness of breath and fatigued and lightheadedness for about 2 weeks. Patient has had an EGD completed 02/[address] Brand that shows chronic inflammation of the esophagus; as well as a colonoscopy completed that had revealed a polyp (denomatous and tubular adenoma) and internal hemorrhoids. Upon arrival to emergency room, patient had a hemoglobin of approximately 7 which is lower than his baseline of approximately 11.6. Patient was admitted to the hospital service for further evaluation and treatment Patient was seen and examined at the bedside. Patient reports that he feels better than yesterday. Reports that his breathing is doing a little better. Denies any lightheadedness. Has not experience any chest pain or palpitations. No nausea, vomiting, abdominal pain, diarrhea, or discomfort with urination. Objective: Vitals (See below) General: Lying in bed, appears comfortable, AAOx3 HEENT: NC, AT CVS: +S1S2 Lungs: Fair air entry b/l, -w/r/r Abdomen: Soft, ND, NT Extremities: - Edema, - Calf tenderness Imaging: CXR 01/19: No acute cardiopulmonary process appreciated. CT abdomen / pelvis 01/19: 1. Moderate prostatic enlargement, particularly the median lobe which protrudes into the bladder floor. There is distention of the urinary bladder which suggests urinary retention. 2. Otherwise negative CT abdomen/pelvis. No bowel distention. Assessment and plan: Symptomatic anemia - Clinically reports improvement of symptoms - Hemodynamically stable - Hg improved; will continue to trend - Iron panel reviewed; consistent with iron deficiency - s/p 2 units PRBC - Will check stool for occult blood - Will start Ferrous sulfate HTN - s/p Hypertensive urgency - BP well controlled - s/p Clonidine / Nitroglycerin - c/w Carvedilol, Losartan, HCTZ CAD s/p stent x2 - c/w Plavix and Atorvastatin BPH with history of microscopic hematuria - c/w Finasteride GERD History of tobacco abuse -Quit in Active alcohol use -Patient's says that he socially drinks 1-2 glasses of wine daily. He denies any history of alcohol abuse, but will monitor clinically. Abdominal distention/left flank pain -Check CT abdomen and pelvis. Check UA, urine C&S. 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
[2021-01-20 12:00] LABS: HEMATOCRIT 32.4 % (42.0-52.0); HEMOGLOBIN 9.5 g/dl (13.5-17.5)
[2021-01-20] MEDS: FERROUS SULFATE 325MG TAB PO SCH ×2 (12:17→21:38)
--- NOTE | 2021-01-20 14:22 | ECGEPIP ---
[facility] - ED Test Date: 2021-01-19 Pat Name: SUZIE WEAVER Department: Room: - Gender: Male Executive Chairman: VC : 1945 Requested By: SKYLER Espinoza Order Number: [id number] Reading MD: Tamy Mendez Measurements Intervals [place] Rate: 67 P: 23 NC: 130 QRS: 54 QRSD: 144 T: 39 QT: 458 QTc: 483 Interpretive Statements Normal sinus rhythm with sinus arrhythmia Right bundle branch block similar 01/04/19 Electronically Signed on 01-20-2021 14:22:06 EST by Tamy Mendez
[2021-01-20 18:44] LABS: HEMATOCRIT 32.2 % (42.0-52.0); HEMOGLOBIN 9.5 g/dl (13.5-17.5)
[2021-01-20] MEDS: LOSARTAN 50MG TABLET PO SCH (21:39)
[2021-01-20] MEDS: ATORVASTATIN 20 MG TAB PO SCH (21:39)
[2021-01-20] MEDS: FINASTERIDE 5 MG TAB PO SCH (21:40)
[2021-01-20 23:52] LABS: HEMATOCRIT 30.5 % (42.0-52.0); HEMOGLOBIN 8.8 g/dl (13.5-17.5)
[2021-01-21] VITALS: BP 154/78
[2021-01-21 04:00] VITALS: BP 162/90
[2021-01-21 04:43] LABS: BASO % 0.7 % (0.0-1.0); EOS # 0.3 10^3/uL (0.0-0.5); EOS % 4.8 % (0.0-3.0); HEMATOCRIT 29.7 % (42.0-52.0); HEMOGLOBIN 8.6 g/dl (13.5-17.5); LYMPH # 0.9 10^3/uL (1.5-5.0); LYMPH % 14.5 % (24.0-44.0); MEAN CORPUSCULAR HEMOGLOBIN 23.3 pg (27.0-33.0); MEAN CORPUSCULAR VOLUME 80.5 fl (80.0-96.0); MONO # 0.7 10^3/uL (0.0-0.8); MONO % 12.1 % (2.0-8.0); NEUTROPHILS % 67.6 % (36.0-66.0); PLATELET COUNT, AUTOMATED 249 10^3/uL (150-450); RED BLOOD COUNT 3.69 10^6/uL (4.30-6.10); WHITE BLOOD COUNT 5.9 10^3/uL (4.0-10.0)
[2021-01-21 05:06] LABS: BLOOD UREA NITROGEN 12 MG/DL (7-18); CALCIUM LEVEL 8.2 MG/DL (8.8-10.2); CARBON DIOXIDE LEVEL 27 MEQ/L (21-32); CHLORIDE LEVEL 109 MEQ/L (98-107); CREATININE FOR GFR 0.74 MG/DL (0.70-1.30); GLOMERULAR FILTRATION RATE > 60.0 (>42); GLUCOSE, FASTING 87 MG/DL (70-100); POTASSIUM SERUM 3.4 MEQ/L (3.5-5.1); SODIUM LEVEL 142 MEQ/L (136-145)
[2021-01-21 08:00] VITALS: BP 160/80
[2021-01-21 09:03] VITALS: BP 160/80
[2021-01-21] MEDS: SUCRALFATE 1 GM TAB PO SCH (09:03)
[2021-01-21] MEDS: SENOKOT S TAB PO SCH (09:03)
[2021-01-21] MEDS: CARVedilol 6.25 MG TAB PO SCH (09:03)
[2021-01-21] MEDS: CLOPIDOGREL 75 MG TAB PO SCH (09:04)
[2021-01-21] MEDS: FERROUS SULFATE 325MG TAB PO SCH (09:04)
[2021-01-21] MEDS: PANTOPRAZOLE 40MG TAB (PROTONIX) PO SCH (09:04)
[2021-01-21] MEDS: hydroCHLOROthiazide 12.5 MG CAPSULE PO SCH (09:04)
[2021-01-21] MEDS ORDERED: SUCR1TA PO (09:40)
[2021-01-21] MEDS ORDERED: FERR325T18 PO (09:40)
[2021-01-21 09:42] LABS: APPEARANCE, URINE CLEAR (CLEAR); BACTERIA, URINE AUTO NEGATIVE (NEGATIVE); BILIRUBIN, URINE AUTO NEGATIVE (NEGATIVE); BLOOD, URINE BLOOD NEGATIVE (NEGATIVE); COLOR, URINE YELLOW (YELLOW); GLUCOSE, URINE (UA) AUTO NEGATIVE (NEGATIVE); KETONE, URINE AUTO NEGATIVE (NEGATIVE); LEUKOCYTE ESTERASE, URINE AUTO NEGATIVE (NEGATIVE); MUCUS, URINE SMALL (NEGATIVE); NITRITE, URINE AUTO NEGATIVE (NEGATIVE); PROTEIN, URINE AUTO NEGATIVE (NEGATIVE); RBC, URINE AUTO 1 /HPF (0-3); SPECIFIC GRAVITY URINE AUTO 1.013 (1.002-1.035); SQUAMOUS EPITHELIAL CELL UR AU 0 /HPF (0-6); UROBILINOGEN, URINE AUTO 0.2 mg/dL (0.0-2.0); WBC, URINE AUTO 0 /HPF (0-3)
[2021-01-21] MEDS ORDERED: POTASSIUM CHLORIDE 10 MEQ SR TABLET PO ONE (10:00)
--- NOTE | 2021-01-21 13:18 | DS.PDOC ---
Discharge Summary General Date of Admission Jan 19, 2021 at 19:05 Date of Discharge 01/21/21 Discharge Summary PROCEDURES PERFORMED DURING STAY: [None]. ADMITTING DIAGNOSES: Symptomatic anemia HTN CAD s/p stent x2 BPH with history of microscopic hematuria GERD History of tobacco abuse Active alcohol use Abdominal distention/left flank pain Esophagitis DISCHARGE DIAGNOSES: Symptomatic anemia HTN CAD s/p stent x2 BPH with history of microscopic hematuria GERD History of tobacco abuse Active alcohol use Abdominal distention/left flank pain Esophagitis COMPLICATIONS/CHIEF COMPLAINT: Acute Anemia. 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 Patient presented to Dr. Vale's office complaining of shortness of breath and fatigued and lightheadedness for about 2 weeks. Patient has had an EGD completed 02/[address] Brand that shows chronic inflammation of the esophagus; as well as a colonoscopy completed that had revealed a polyp (denoma tous and tubular adenoma) and internal hemorrhoids. Upon arrival to emergency room, patient had a hemoglobin of approximately 7 which is lower than his baseline of approximately 11.6. Patient was admitted to the hospital service for further evaluation and treatment Patient was seen and examined at the bedside. Patient reports that he feels better than yesterday. Reports that his breathing is doing a little better. Denies any lightheadedness. Has not experience any chest pain or palpitations. No nausea, vomiting, abdominal pain, diarrhea, or discomfort with urination. HOSPITAL COURSE: During hospital stay the following issues addressed: Symptomatic anemia - Clinically reports improvement of symptoms - Hemodynamically stable - Hg improved; will continue to trend - Iron panel reviewed; consistent with iron deficiency - s/p 2 units PRBC - stool for occult blood negative - Ferrous sulfate Patient will need endoscopy and colonoscopy in the outpatient settings HTN - s/p Hypertensive urgency - BP well controlled - s/p Clonidine / Nitroglycerin - c/w Carvedilol, Losartan, HCTZ CAD s/p stent x2 - c/w Plavix and Atorvastatin BPH with history of microscopic hematuria - c/w Finasteride GERD History of tobacco abuse -Quit in Active alcohol use -Patient's says that he socially drinks 1-2 glasses of wine daily. He denies any history of alcohol abuse, but will monitor clinically. -Check CT abdomen and pelvis. Check UA, urine C&S. 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 ALLERGIES: Please see below. PHYSICAL EXAMINATION ON DISCHARGE: VITAL SIGNS: Please see below. Vitals (See below) General: Lying in bed, appears comfortable, AAOx3 HEENT: NC, AT CVS: +S1S2 Lungs: Fair air entry b/l, -w/r/r Abdomen: Soft, ND, NT Extremities: - Edema, - Calf tenderness LABORATORY DATA: Please see below. IMAGING: CT abdomen / pelvis 01/19: 1. Moderate prostatic enlargement, particularly the median lobe which protrudes into the bladder floor. There is distention of the urinary bladder which suggests urinary retention. 2. Otherwise negative CT abdomen/pelvis. No bowel distention. PROGNOSIS: fair ACTIVITY: [As tolerated]. DIET: cardiac DISPOSITION: 01 Home, Self-Care. ITEMS TO FOLLOWUP ON ON OUTPATIENT: f/u with GI team in 3-5 days DISCHARGE CONDITION: [Stable]. TIME SPENT ON DISCHARGE: 30minutes. Vital Signs/I&Os Vital Signs Date Time Temp Pulse Resp B/P (MAP) Pulse Ox O2 Delivery O2 Flow Rate FiO2 01/21/21 09:03 80 160/80 01/21/21 08:00 97.8 16 98 Room Air I&O- Last 24 Hours up to 6 AM 01/21/21 06:00 Intake Total 900 ml Output Total 1100 ml Balance -200 ml Laboratory Data Labs 24H Laboratory Tests 2 01/21/21 04:28: Immature Granulocyte % (Auto) 0.3, Neutrophils (%) (Auto) 67.6H, Lymphocytes (%) (Auto) 14.5L, Monocytes (%) (Auto) 12.1H, Eosinophils (%) (Auto) 4.8H, Basophils (%) (Auto) 0.7, Neutrophils # (Auto) 4.0, Lymphocytes # (Auto) 0.9L, Monocytes # (Auto) 0.7, Eosinophils # (Auto) 0.3, Basophils # (Auto) 0.0, Nucleated Red Blood Cells % (auto) 0.0, Anion Gap 6L, Glomerular Filtration Rate > 60.0, Calcium Level 8.2L 01/21/21 09:12: Urine Color YELLOW, Urine Appearance CLEAR, Urine pH 5.0, Urine Specific [place] 1.013, Urine Protein NEGATIVE, Urine Glucose (Auto)(UA) NEGATIVE, Urine Ketones (Auto) NEGATIVE, Urine Blood NEGATIVE, Urine Nitrite NEGATIVE, Urine Bilirubin NEGATIVE, Urine Urobilinogen 0.2, Urine Leukocyte Esterase (Auto) NEGATIVE, Urine WBC (Auto) 0, Urine RBC (Auto) 1, Urine Hyaline Casts (Auto) 0, Urine Bacteria (Auto) NEGATIVE, Urine Squamous Epithelial Cells 0, Urine Mucus (Auto) SMALL, Urine Sperm (Auto) CBC/BMP Laboratory Tests 01/20/21 18:08 01/20/21 23:45 01/21/21 04:28 Microbiology Microbiology 01/20/21 Stool Occult Blood (BOY) - Final, Complete Discharge Medications Scheduled Atorvastatin Calcium (Atorvastatin Calcium) 20 Mg Tablet, 20 MG PO QHS, (Reported) Carvedilol (Carvedilol) 6.25 Mg Tablet, 6.25 MG PO BID, (Reported) Clopidogrel Bisulfate (Clopidogrel) 75 Mg Tablet, 75 MG PO DAILY, (Reported) Doxazosin Mesylate (Doxazosin) 2 Mg Tablet, 2 MG PO BID, (Reported) Ferrous Sulfate (Ferrous Sulfate) 325 Mg Tablet, 325 MG PO BID Finasteride (Finasteride) 5 Mg Tablet, 5 MG PO QHS, (Reported) Hydrochlorothiazide (Hydrochlorothiazide) 12.5 Mg Capsule, 12.5 MG PO DAILY, (Reported) Losartan Potassium (Losartan Potassium) 100 Mg Tablet, 100 MG PO QHS, (Reported) Omeprazole (Omeprazole) 20 Mg Capsule.dr, 20 MG PO BID, (Reported) Sucralfate (Sucralfate) 1 Gm Tablet, 1 GM PO ACHS Scheduled PRN Zolpidem Tartrate (Zolpidem Tartrate) 5 Mg Tablet, 5 MG PO QHS PRN for SLEEP, (Reported) Allergies Coded Allergies: No Known Allergies (Unverified , 02/27/19) IZABELLA SPEARS DO Jan 21, 2021 13:18
== END 2021-01-21 12:04 | disposition home or self-care (01) | DRG 812 ==
LOC: M ED 17:20 → M ED INP 19:05 → ENRESERV 20:49 → M PCU 21:50
PROVIDERS: ADMIT General Practice; ATTEND Internal Medicine
PROC: 30233N1 Transfusion of Nonautologous Red Blood Cells into Peripheral Vein, Percutaneous Approach (ICD-10-PCS; principal; 2021-01-19)
DX: D50.9 Iron deficiency anemia, unspecified (principal); I16.0 Hypertensive urgency; I25.10 Atherosclerotic heart disease of native coronary artery without angina pectoris; Z95.2 Presence of prosthetic heart valve; K21.9 Gastro-esophageal reflux disease without esophagitis; N40.0 Benign prostatic hyperplasia without lower urinary tract symptoms; F10.10 Alcohol abuse, uncomplicated; K20.90 Esophagitis, unspecified without bleeding; R31.9 Hematuria, unspecified; Z79.899 Other long term (current) drug therapy; Z87.891 Personal history of nicotine dependence; K64.8 Other hemorrhoids

== ENCOUNTER → 2021-01-29 | Outpatient (CLI) | payer MEDICARE, OTHER ==
[~2021-01-29] MED LIST changes: +ATOR1TAB21 PO; +CLOP75TA2 PO; +FERR325T18 PO; +HYDR12CA PO; +OMEP-218 PO; +SUCR1TA PO; +ZOLP5TAB PO
[2021-01-29 14:15] LABS: HEMATOCRIT 33.8 % (42.0-52.0); HEMOGLOBIN 10.1 g/dl (13.5-17.5); MEAN CORPUSCULAR HEMOGLOBIN 24.8 pg (27.0-33.0); MEAN CORPUSCULAR HGB CONC 29.9 g/dl (32.0-36.5); MEAN CORPUSCULAR VOLUME 82.8 fl (80.0-96.0); PLATELET COUNT, AUTOMATED 257 10^3/uL (150-450); RED BLOOD COUNT 4.08 10^6/uL (4.30-6.10); WHITE BLOOD COUNT 6.3 10^3/uL (4.0-10.0)
[2021-01-29 14:56] LABS: ALBUMIN 3.7 GM/DL (3.2-5.2); ALT/SGPT 18 U/L (12-78); BILIRUBIN,TOTAL 0.4 MG/DL (0.2-1.0); BLOOD UREA NITROGEN 14 MG/DL (7-18); CARBON DIOXIDE LEVEL 28 MEQ/L (21-32); CHLORIDE LEVEL 107 MEQ/L (98-107); CHOLESTEROL LEVEL 187 MG/DL (<200); CHOLESTEROL RISK RATIO 2.125 (<5); CREATININE FOR GFR 0.72 MG/DL (0.70-1.30); GLOMERULAR FILTRATION RATE > 60.0 (>42); GLUCOSE, FASTING 98 MG/DL (70-100); HDL CHOLESTEROL 88 MG/DL (>40); LDL CHOLESTEROL 87 MG/DL (<100); NON-HDL-C 99 MG/DL; POTASSIUM SERUM 4.1 MEQ/L (3.5-5.1); PROSTATIC SPECIFIC AG MONITOR 3.46 NG/ML (< 4.00); SODIUM LEVEL 139 MEQ/L (136-145); TOTAL PROTEIN 6.9 GM/DL (6.4-8.2); TRIGLYCERIDES LEVEL 59 MG/DL (<150)
[2021-01-29 15:09] LABS: HEMOGLOBIN A1c 6.1 %
[2021-01-29 18:04] LABS: TESTOSTERONE 273 NG/DL (241-827)
== END ==
LOC: M LAB 13:32
PROVIDERS: ATTEND Family Medicine
DX: R53.83 Other fatigue (principal); I10 Essential (primary) hypertension; R97.20 Elevated prostate specific antigen [PSA]; Z79.899 Other long term (current) drug therapy

== ENCOUNTER → 2021-03-04 | Outpatient (CLI) | payer MEDICARE, OTHER ==
[2021-03-04 15:51] LABS: BASO % 0.8 % (0.0-1.0); EOS # 0.2 10^3/uL (0.0-0.5); EOS % 4.2 % (0.0-3.0); HEMATOCRIT 40.7 % (42.0-52.0); HEMOGLOBIN 12.5 g/dl (13.5-17.5); LYMPH % 19.6 % (24.0-44.0); MEAN CORPUSCULAR HEMOGLOBIN 27.4 pg (27.0-33.0); MEAN CORPUSCULAR HGB CONC 30.7 g/dl (32.0-36.5); MEAN CORPUSCULAR VOLUME 89.3 fl (80.0-96.0); MONO # 0.7 10^3/uL (0.0-0.8); MONO % 13.2 % (2.0-8.0); NEUTROPHILS # 3.1 10^3/uL (1.5-8.5); PLATELET COUNT, AUTOMATED 219 10^3/uL (150-450); RED BLOOD COUNT 4.56 10^6/uL (4.30-6.10)
== END ==
LOC: M LAB 13:55
PROVIDERS: ATTEND Internal Medicine Gastroenterology
DX: D64.9 Anemia, unspecified (principal)

== ENCOUNTER → 2021-03-17 | Outpatient (CLI) | payer MEDICARE, OTHER ==
[~2021-03-17] MED LIST changes: +ECOT81TA5 PO
== END ==
LOC: M LABSMTC 14:31
PROVIDERS: ATTEND Anesthesiology
DX: Z01.812 Encounter for preprocedural laboratory examination (principal); Z11.52 Encounter for screening for COVID-19

== ENCOUNTER 2021-03-22 10:54 | Day surgery (SDC) | payer MEDICARE, OTHER ==
[~2021-03-22] VITALS: Ht 165.1 cm; Wt 74.8 kg
[~2021-03-22 10:54] MED LIST changes: +NS 1,000 ML IV ONE
[2021-03-22] MEDS ORDERED: LIDOCAINE 2% 100MG/5ML SDV (FOR ANES.) As Ordered ONE (11:24)
[2021-03-22] MEDS ORDERED: propofoL 200 MG/20 ML VIAL As Ordered ONE (11:24)
[2021-03-22] MEDS ORDERED: fentaNYL 100 MCG/2 ML INJECTION (J3010) As Ordered ONE (11:33)
--- NOTE | 2021-03-22 11:55 | ROOR ---
Patient Name: Julio Menjivar Procedure Date: 03/22/2021 11:31 AM Date of : 1945 Age: 75 Room: [facility] Gender: Male Note Status: Finalized Procedure: Upper Endoscopy + Biopsies Indications: Unexplained iron deficiency anemia Providers: Robert Brand MD Referring MD: CHICO HERRERA MD Requesting Provider: Medicines: Monitored Anesthesia Care Complications: No immediate complications. Procedure: Pre-Anesthesia Assessment: - The heart rate, respiratory rate, oxygen saturations, blood pressure, adequacy of pulmonary ventilation, and response to care were monitored throughout the procedure. The Endoscope was introduced through the mouth, and advanced to the second part of duodenum. The upper GI endoscopy was accomplished without difficulty. The patient tolerated the procedure well. Findings: The Z-line was irregular and was found 40 cm from the incisors. Multiple biopsies were obtained with cold forceps for evaluation to rule out Cuellar's Esophagus randomly at the gastroesophageal junction. A small hiatal hernia was present. Localized mildly erythematous mucosa without bleeding was found in the gastric antrum. Biopsies were taken with a cold forceps for Helicobacter pylori testing. The exam of the duodenum was otherwise normal. Biopsies for histology were taken with a cold forceps in the first portion of the duodenum for evaluation of celiac disease. The exam was otherwise without abnormality. Impression: - Z-line irregular, 40 cm from the incisors. - Small hiatal hernia. - Erythematous mucosa in the antrum. Biopsied. - The examination was otherwise normal. - Multiple biopsies were obtained at the gastroesophageal junction. - Biopsies were taken with a cold forceps for evaluation of celiac disease. - The examination was otherwise normal. Recommendation: - Patient has a contact number available for emergencies. The signs and symptoms of potential delayed complications were discussed with the patient. Return to normal activities tomorrow. Written discharge instructions were provided to the patient. - High fiber diet. - Discharge patient to home. - Follow an antireflux regimen. - Continue present medications. - Await pathology results. - Telephone GI clinic for pathology results in 1 week. - Return to referring physician. - The findings and recommendations were discussed with the patient. Procedure Code(s): --- Professional --- 66793, Esophagogastroduodenoscopy, flexible, transoral; with biopsy, single or multiple Diagnosis Code(s): --- Professional --- K22.8, Other specified diseases of esophagus K44.9, Diaphragmatic hernia without obstruction or gangrene K31.89, Other diseases of stomach and duodenum D50.9, Iron deficiency anemia, unspecified CPT copyright 2019 [employer]. All rights reserved. The codes documented in this report are preliminary and upon head stock transfer clerk review may be revised to meet current compliance requirements. Robert Brand MD Robert Brand MD 03/22/2021 11:54:44 AM Electronically signed by Robert Brand MD Number of Addenda: 0 Note Initiated On: 03/22/2021 11:31 AM Estimated Blood Loss: Estimated blood loss: none.
[2021-03-22] MEDS ORDERED: ePHEDrine SULFATE 25 MG/5 ML(5MG/ML) SYRINGE As Ordered ONE (11:56)
--- NOTE | 2021-03-22 12:13 | ROOR ---
Patient Name: Julio Menjivar Procedure Date: 03/22/2021 11:32 AM Date of : 1945 Age: 75 Room: [facility] Gender: Male Note Status: Finalized Procedure: Total Colonoscopy to Cecum + Cold Snare Polypectomy Indications: Unexplained iron deficiency anemia Providers: Robert Brand MD Referring MD: CHICO HERRERA MD Requesting Provider: Medicines: Monitored Anesthesia Care Complications: No immediate complications. Procedure: Pre-Anesthesia Assessment: - The heart rate, respiratory rate, oxygen saturations, blood pressure, adequacy of pulmonary ventilation, and response to care were monitored throughout the procedure. The Colonoscope was introduced through the anus and advanced to the cecum, identified by appendiceal orifice and ileocecal valve. The colonoscopy was performed without difficulty. The patient tolerated the procedure well. The quality of the bowel preparation was excellent. Findings: The perianal and digital rectal examinations were normal. Non-bleeding internal hemorrhoids were found during retroflexion. The hemorrhoids were small and Grade I (internal hemorrhoids that do not prolapse). Scattered small-mouthed diverticula were found in the recto-sigmoid colon, sigmoid colon and descending colon. Two sessile polyps were found in the hepatic flexure. The polyps were small in size. These polyps were removed with a cold snare. Resection and retrieval were complete. The exam was otherwise without abnormality on direct and retroflexion views. Impression: - Non-bleeding internal hemorrhoids. - Diverticulosis in the recto-sigmoid colon, in the sigmoid colon and in the descending colon. - Two small polyps at the hepatic flexure, removed with a cold snare. Resected and retrieved. - The examination was otherwise normal on direct and retroflexion views. - The exam was otherwise normal to the cecum. Recommendation: - Patient has a contact number available for emergencies. The signs and symptoms of potential delayed complications were discussed with the patient. Return to normal activities tomorrow. Written discharge instructions were provided to the patient. - High fiber diet. - Discharge patient to home. - Continue present medications. - Await pathology results. - Telephone GI clinic for pathology results in 1 week. - Repeat colonoscopy is not recommended due to current age (66 years or older) for surveillance. - Return to referring physician. - The findings and recommendations were discussed with the patient's family. Procedure Code(s): --- Professional --- 26185, Colonoscopy, flexible; with removal of tumor(s), polyp(s), or other lesion(s) by snare technique Diagnosis Code(s): --- Professional --- K64.0, First degree hemorrhoids K63.5, Polyp of colon D50.9, Iron deficiency anemia, unspecified K57.30, Diverticulosis of large intestine without perforation or abscess without bleeding CPT copyright 2019 [employer]. All rights reserved. The codes documented in this report are preliminary and upon hims coder review may be revised to meet current compliance requirements. Robert Brand MD Robert Brand MD 03/22/2021 12:12:57 PM Electronically signed by Robert Brand MD Number of Addenda: 0 Note Initiated On: 03/22/2021 11:32 AM Estimated Blood Loss: Estimated blood loss: none.
[2021-03-22 12:40] VITALS: BP 115/65
== END 2021-03-22 12:49 | disposition home or self-care (01) ==
LOC: M OPP 10:54
PROVIDERS: ATTEND Internal Medicine Gastroenterology
DX: D12.3 Benign neoplasm of transverse colon (principal); K57.30 Diverticulosis of large intestine without perforation or abscess without bleeding; K64.0 First degree hemorrhoids; K22.8 Other specified diseases of esophagus; K44.9 Diaphragmatic hernia without obstruction or gangrene; K31.89 Other diseases of stomach and duodenum; I10 Essential (primary) hypertension; N40.0 Benign prostatic hyperplasia without lower urinary tract symptoms; Z79.82 Long term (current) use of aspirin; Z79.899 Other long term (current) drug therapy; Z87.891 Personal history of nicotine dependence; Z95.5 Presence of coronary angioplasty implant and graft
CPT/HCPCS: 43239; 45385; 88305; J3010

== ENCOUNTER → 2021-07-06 | Outpatient (CLI) | payer MEDICARE, OTHER ==
[~2021-07-06] MED LIST changes: -NS 1,000 ML IV ONE
[2021-07-06 10:34] LABS: HEMATOCRIT 41.9 % (42.0-52.0); HEMOGLOBIN 13.6 g/dl (13.5-17.5); MEAN CORPUSCULAR HEMOGLOBIN 30.8 pg (27.0-33.0); MEAN CORPUSCULAR HGB CONC 32.5 g/dl (32.0-36.5); PLATELET COUNT, AUTOMATED 204 10^3/uL (150-450); RED BLOOD COUNT 4.41 10^6/uL (4.30-6.10); WHITE BLOOD COUNT 5.4 10^3/uL (4.0-10.0)
[2021-07-06 10:50] LABS: HEMOGLOBIN A1c 5.5 %
[2021-07-06 11:14] LABS: ALBUMIN 3.7 GM/DL (3.2-5.2); ALT/SGPT 30 U/L (12-78); BILIRUBIN,TOTAL 0.4 MG/DL (0.2-1.0); BLOOD UREA NITROGEN 18 MG/DL (7-18); CALCIUM LEVEL 8.7 MG/DL (8.8-10.2); CARBON DIOXIDE LEVEL 25 MEQ/L (21-32); CHLORIDE LEVEL 108 MEQ/L (98-107); CHOLESTEROL LEVEL 213 MG/DL (<200); CHOLESTEROL RISK RATIO 2.151 (<5); CREATININE FOR GFR 0.74 MG/DL (0.70-1.30); GLOMERULAR FILTRATION RATE > 60.0 (>42); GLUCOSE, FASTING 106 MG/DL (70-100); HDL CHOLESTEROL 99 MG/DL (>40); LDL CHOLESTEROL 99 MG/DL (<100); NON-HDL-C 114 MG/DL; POTASSIUM SERUM 3.9 MEQ/L (3.5-5.1); SODIUM LEVEL 140 MEQ/L (136-145); TESTOSTERONE 103 NG/DL (241-827); TRIGLYCERIDES LEVEL 76 MG/DL (<150)
== END ==
LOC: M LAB 09:18
PROVIDERS: ATTEND Family Medicine
DX: E03.9 Hypothyroidism, unspecified (principal); R53.83 Other fatigue; D64.9 Anemia, unspecified; Z79.899 Other long term (current) drug therapy
CPT/HCPCS: 36415; 80053; 80061; 83036; 84403; 84443; 85027; G0103

== ENCOUNTER → 2021-07-13 | Outpatient (CLI) | payer MEDICARE, OTHER ==
--- NOTE | 2021-07-13 13:01 | REP ---
INDICATION: HTN-EKG FIRST COMPARISON: 01/04/2019 TECHNIQUE: PA and lateral. FINDINGS: The mediastinum and cardiac silhouette are normal. The lung silveira are clear and without acute consolidation, effusion, or pneumothorax. The skeletal structures are intact and normal. IMPRESSION: No acute cardiopulmonary process. <Electronically signed by Hector Saavedra > 07/13/21 [id number]
--- NOTE | 2021-07-13 20:05 | ECGEPIP ---
[facility] Test Date: 2021-07-13 Pat Name: SUZIE WEAVER Department: Room: - Gender: Male Answerer: michael : 1945 Requested By: Ferdinand Mas Order Number: [id number] Reading MD: Dutch Malik Measurements Intervals [place] Rate: 59 P: 25 AL: 126 QRS: 59 QRSD: 144 T: 18 QT: 448 QTc: 443 Interpretive Statements Sinus bradycardia Right bundle branch block Similar to tracing done 01-19-21 Electronically Signed on 07-13-2021 20:04:56 EDT by Dutch Malik
== END ==
LOC: M RAD 12:28
PROVIDERS: ATTEND Family Medicine
DX: I10 Essential (primary) hypertension (principal)

== ENCOUNTER → 2022-01-12 | Outpatient (CLI) | payer MEDICARE, OTHER ==
[~2022-01-12] MED LIST changes: +LOSA100T45 PO; -LOSA100T50 PO; +OMEP-173 PO; -OMEP-218 PO
[2022-01-12 13:56] LABS: THYROID STIMULATING HORMONE 1.41 uIU/ML (0.358-3.740)
[2022-01-12 14:33] LABS: HEMOGLOBIN A1c 5.6 %
== END ==
LOC: M LAB 12:10
PROVIDERS: ATTEND Family Medicine
DX: D64.9 Anemia, unspecified (principal); R53.83 Other fatigue; E11.9 Type 2 diabetes mellitus without complications; E03.9 Hypothyroidism, unspecified; E78.00 Pure hypercholesterolemia, unspecified; Z12.5 Encounter for screening for malignant neoplasm of prostate; Z98.61 Coronary angioplasty status
CPT/HCPCS: 36415; 80053; 80061; 83036; 84403; 84443; 85027; G0103

== ENCOUNTER → 2022-05-02 | Outpatient (CLI) | payer MEDICARE, OTHER ==
[2022-05-02 11:25] LABS: HEMATOCRIT 45.2 % (42.0-52.0); HEMOGLOBIN 14.3 g/dl (13.5-17.5); MEAN CORPUSCULAR HEMOGLOBIN 28.9 pg (27.0-33.0); MEAN CORPUSCULAR HGB CONC 31.6 g/dl (32.0-36.5); MEAN CORPUSCULAR VOLUME 91.5 fl (80.0-96.0); PLATELET COUNT, AUTOMATED 219 10^3/uL (150-450); RED BLOOD COUNT 4.94 10^6/uL (4.30-6.10); WHITE BLOOD COUNT 6.1 10^3/uL (4.0-10.0)
[2022-05-02 11:56] LABS: HEMOGLOBIN A1c 5.5 %
[2022-05-02 12:08] LABS: ALBUMIN 3.4 GM/DL (3.2-5.2); ALT/SGPT 20 U/L (12-78); BILIRUBIN,TOTAL 0.4 MG/DL (0.2-1.0); BLOOD UREA NITROGEN 17 MG/DL (7-18); CALCIUM LEVEL 8.6 MG/DL (8.8-10.2); CARBON DIOXIDE LEVEL 27 MEQ/L (21-32); CHLORIDE LEVEL 105 MEQ/L (98-107); CHOLESTEROL LEVEL 186 MG/DL (<200); CHOLESTEROL RISK RATIO 2.268 (<5); CREATININE FOR GFR 0.89 MG/DL (0.70-1.30); GLOMERULAR FILTRATION RATE > 60.0 (>42); GLUCOSE, FASTING 97 MG/DL (70-100); HDL CHOLESTEROL 82 MG/DL (>40); LDL CHOLESTEROL 88 MG/DL (<100); NON-HDL-C 104 MG/DL; PROSTATIC SPECIFIC AG MONITOR 7.23 NG/ML (< 4.00); SODIUM LEVEL 138 MEQ/L (136-145); TESTOSTERONE 319 NG/DL (241-827); TOTAL PROTEIN 7.1 GM/DL (6.4-8.2); TRIGLYCERIDES LEVEL 82 MG/DL (<150)
== END ==
LOC: M LAB 10:35
PROVIDERS: ATTEND Family Medicine
DX: R53.83 Other fatigue (principal); I10 Essential (primary) hypertension; E03.9 Hypothyroidism, unspecified; R97.20 Elevated prostate specific antigen [PSA]; Z79.899 Other long term (current) drug therapy

== ENCOUNTER → 2022-06-07 | Outpatient (REF) | payer MEDICARE | LOC: M SMT 12:46 | PROVIDERS: ATTEND Urology | DX: R97.20 Elevated prostate specific antigen [PSA] (principal) ==

== ENCOUNTER → 2022-08-10 | Outpatient (CLI) | payer MEDICARE ==
[2022-08-10 10:59] LABS: HEMOGLOBIN 13.5 g/dl (13.5-17.5); MEAN CORPUSCULAR HEMOGLOBIN 30.5 pg (27.0-33.0); MEAN CORPUSCULAR HGB CONC 32.1 g/dl (32.0-36.5); PLATELET COUNT, AUTOMATED 188 10^3/uL (150-450); RED BLOOD COUNT 4.42 10^6/uL (4.30-6.10); WHITE BLOOD COUNT 5.7 10^3/uL (4.0-10.0)
[2022-08-10 11:15] LABS: HEMOGLOBIN A1c 5.7 %
[2022-08-10 11:43] LABS: ALBUMIN 3.5 GM/DL (3.2-5.2); ALT/SGPT 26 U/L (12-78); BILIRUBIN,TOTAL 0.7 MG/DL (0.2-1.0); BLOOD UREA NITROGEN 12 MG/DL (7-18); CALCIUM LEVEL 9.2 MG/DL (8.8-10.2); CARBON DIOXIDE LEVEL 29 MEQ/L (21-32); CHLORIDE LEVEL 105 MEQ/L (98-107); CHOLESTEROL LEVEL 176 MG/DL (<200); CHOLESTEROL RISK RATIO 1.913 (<5); CREATININE FOR GFR 0.67 MG/DL (0.70-1.30); GLOMERULAR FILTRATION RATE > 60.0 (>42); GLUCOSE, FASTING 91 MG/DL (70-100); HDL CHOLESTEROL 92 MG/DL (>40); LDL CHOLESTEROL 63 MG/DL (<100); NON-HDL-C 84 MG/DL; POTASSIUM SERUM 3.6 MEQ/L (3.5-5.1); PROSTATIC SPECIFIC AG MONITOR 4.56 NG/ML (< 4.00); SODIUM LEVEL 138 MEQ/L (136-145); TOTAL PROTEIN 6.9 GM/DL (6.4-8.2); TRIGLYCERIDES LEVEL 103 MG/DL (<150)
[2022-08-10 12:31] LABS: TESTOSTERONE 549 NG/DL (241-827)
== END ==
LOC: M LAB 10:22
PROVIDERS: ATTEND Family Medicine
DX: E03.9 Hypothyroidism, unspecified (principal); R53.83 Other fatigue; I10 Essential (primary) hypertension; Z79.899 Other long term (current) drug therapy; R97.20 Elevated prostate specific antigen [PSA]

== ENCOUNTER → 2023-06-19 | Outpatient (CLI) | payer MEDICARE ==
[~2023-06-19] MED LIST changes: -DOXA2TAB3 PO; +DOXA2TAB61 PO; -LOSA100T45 PO; +LOSA100T46 PO
[2023-06-20 23:07] LABS: PSA TOTAL 17.8 ng/mL (0.0-4.0)
== END ==
LOC: M LAB 09:50
PROVIDERS: ATTEND Urology
DX: R97.20 Elevated prostate specific antigen [PSA] (principal)

== ENCOUNTER → 2023-07-07 | Outpatient (REF) | payer MEDICARE ==
[2023-07-07 19:14] LABS: APPEARANCE, URINE CLEAR (CLEAR); BACTERIA, URINE AUTO NEGATIVE (NEGATIVE); BILIRUBIN, URINE AUTO NEGATIVE (NEGATIVE); BLOOD, URINE BLOOD NEGATIVE (NEGATIVE); COLOR, URINE YELLOW (YELLOW); GLUCOSE, URINE (UA) AUTO NEGATIVE (NEGATIVE); KETONE, URINE AUTO NEGATIVE (NEGATIVE); LEUKOCYTE ESTERASE, URINE AUTO 1+ (NEGATIVE); NITRITE, URINE AUTO NEGATIVE (NEGATIVE); PROTEIN, URINE AUTO NEGATIVE (NEGATIVE); RBC, URINE AUTO 1 /HPF (0-3); SPECIFIC GRAVITY URINE AUTO 1.016 (1.002-1.035); SQUAMOUS EPITHELIAL CELL UR AU 0 /HPF (0-6); UROBILINOGEN, URINE AUTO 0.2 mg/dL (0.0-2.0); WBC, URINE AUTO 9 /HPF (0-3)
== END ==
LOC: M SMT 17:12
PROVIDERS: ATTEND Urology
DX: N39.0 Urinary tract infection, site not specified (principal)

== ENCOUNTER → 2023-08-21 | Outpatient (CLI) | payer MEDICARE | LOC: M LAB 09:22 | PROVIDERS: ATTEND Urology | DX: R97.20 Elevated prostate specific antigen [PSA] (principal) ==

== ENCOUNTER → 2023-12-21 | Outpatient (CLI) | payer MEDICARE | LOC: M RAD 14:08 | PROVIDERS: ATTEND Family Medicine | DX: J44.9 Chronic obstructive pulmonary disease, unspecified (principal) ==

== ENCOUNTER → 2024-01-23 | Outpatient (REF) | payer MEDICARE | LOC: M SFHCDERM 18:01 | PROVIDERS: ATTEND Physician Assistant | DX: D49.2 Neoplasm of unspecified behavior of bone, soft tissue, and skin (principal) ==

== ENCOUNTER → 2024-04-18 | Outpatient (CLI) | payer MEDICARE ==
[~2024-04-18] MED LIST changes: -ROSU10TA6 PO; +ROSU10TA61 PO
== END ==
LOC: M RAD 16:08
PROVIDERS: ATTEND Family Medicine
DX: M75.31 Calcific tendinitis of right shoulder (principal); M19.011 Primary osteoarthritis, right shoulder; M25.511 Pain in right shoulder

== ENCOUNTER → 2024-08-03 | Outpatient (CLI) | payer MEDICARE ==
[2024-08-03 13:31] LABS: HEMATOCRIT 42.4 % (42.0-52.0); HEMOGLOBIN 13.8 g/dl (13.5-17.5); MEAN CORPUSCULAR HEMOGLOBIN 30.4 pg (27.0-33.0); MEAN CORPUSCULAR HGB CONC 32.5 g/dl (32.0-36.5); MEAN CORPUSCULAR VOLUME 93.4 fl (80.0-96.0); PLATELET COUNT, AUTOMATED 193 10^3/uL (150-450); RED BLOOD COUNT 4.54 10^6/uL (4.30-6.10); WHITE BLOOD COUNT 5.4 10^3/uL (4.0-10.0)
[2024-08-03 14:06] LABS: ALBUMIN 3.3 G/DL (3.2-5.2); ALKALINE PHOSPHATASE 78 U/L (46-116); ALT/SGPT 20 U/L (7.0-40); AST/SGOT 17 U/L (<34); BILIRUBIN,TOTAL 0.6 MG/DL (0.3-1.2); BLOOD UREA NITROGEN 15 MG/DL (9-23); CALCIUM LEVEL 8.5 MG/DL (8.3-10.6); CARBON DIOXIDE LEVEL 26 MMOL/L (20-31); CHLORIDE LEVEL 107 MMOL/L (98-107); CHOLESTEROL LEVEL 175 MG/DL (<200); CHOLESTEROL RISK RATIO 1.91 (<5); CREATININE FOR GFR 0.67 MG/DL (0.70-1.30); GLOMERULAR FILTRATION RATE > 60.0 (>35); GLUCOSE, FASTING 170 MG/DL (74-106); HDL CHOLESTEROL 91.4 MG/DL (>40); LDL CHOLESTEROL 67.8 MG/DL (<100); NON-HDL-C 83.6 MG/DL; POTASSIUM SERUM 3.9 MMOL/L (3.5-5.1); PROSTATIC SPECIFIC AG MONITOR 4.98 NG/ML (< 4.00); SODIUM LEVEL 140 MMOL/L (136-145); TOTAL PROTEIN 6.1 G/DL (5.7-8.2); TRIGLYCERIDES LEVEL 79 MG/DL (<150)
[2024-08-03 14:07] LABS: THYROID STIMULATING HORMONE 1.288 uIU/ML (0.55-4.78)
[2024-08-03 14:08] LABS: TESTOSTERONE 677 NG/DL (241-827)
[2024-08-03 14:13] LABS: HEMOGLOBIN A1c 5.5 % (4.0-6.0)
== END ==
LOC: M LAB 13:06
PROVIDERS: ATTEND Family Medicine
DX: I10 Essential (primary) hypertension (principal); R53.83 Other fatigue; E03.9 Hypothyroidism, unspecified; Z79.899 Other long term (current) drug therapy

== ENCOUNTER → 2024-09-17 | Outpatient (CLI) | payer MEDICARE | LOC: M LAB 15:14 | PROVIDERS: ATTEND Urology | DX: R97.20 Elevated prostate specific antigen [PSA] (principal) ==

== ENCOUNTER → 2024-09-23 | Outpatient (CLI) | payer MEDICARE | LOC: M RAD 08:52 | PROVIDERS: ATTEND Family Medicine | DX: R19.03 Right lower quadrant abdominal swelling, mass and lump (principal); R19.04 Left lower quadrant abdominal swelling, mass and lump; K76.0 Fatty (change of) liver, not elsewhere classified ==

== ENCOUNTER → 2024-09-26 | Outpatient (CLI) | payer MEDICARE | LOC: M RAD 13:48 | PROVIDERS: ATTEND Family Medicine | DX: R22.2 Localized swelling, mass and lump, trunk (principal) ==

== ENCOUNTER → 2024-10-10 | Outpatient (REF) | payer MEDICARE | LOC: M LAB REF 14:29 | PROVIDERS: ATTEND Internal Medicine Gastroenterology | DX: R19.4 Change in bowel habit (principal); K62.5 Hemorrhage of anus and rectum; R19.7 Diarrhea, unspecified ==

== ENCOUNTER → 2024-12-12 | Outpatient (REF) | payer MEDICARE ==
[~2024-12-12] MED LIST changes: +AMLO2.5T3 PO; +EZET10TA21 PO; +MELO7.5T35 PO; +ROSU20TA86 PO
== END ==
LOC: M LAB REF 18:00
PROVIDERS: ATTEND Surgery
DX: D36.7 Benign neoplasm of other specified sites (principal)

== ENCOUNTER 2024-12-16 07:04 | Day surgery (SDC) | payer MEDICARE ==
[~2024-12-16] VITALS: Ht 166.4 cm; Wt 71.1 kg
[2024-12-16] MEDS ORDERED: propofoL 200 MG/20 ML VIAL As Ordered ONE (07:07)
[2024-12-16] MEDS ORDERED: LIDOCAINE 2% 100MG/5ML SDV (FOR ANES.) As Ordered ONE (07:07)
[2024-12-16 08:54] VITALS: BP 117/71; O2SAT 94
== END 2024-12-16 09:10 | disposition home or self-care (01) ==
LOC: M OPP 07:04
PROVIDERS: ATTEND Internal Medicine Gastroenterology
DX: D12.4 Benign neoplasm of descending colon (principal); K57.30 Diverticulosis of large intestine without perforation or abscess without bleeding; K64.0 First degree hemorrhoids; K62.5 Hemorrhage of anus and rectum; R19.4 Change in bowel habit; Z79.899 Other long term (current) drug therapy; Z95.5 Presence of coronary angioplasty implant and graft

== ENCOUNTER → 2025-10-20 | Outpatient (REF) | payer MEDICARE ==
[~2025-10-20] MED LIST changes: -EZET10TA21 PO; +EZET10TA57 PO; +HYDR12.510 PO; -HYDR12CA PO; -ROSU10TA61 PO; +ROSU10TA90 PO; -ZOLP5TAB PO; +ZOLP5TAB9 PO
[2025-10-20 18:00] LABS: ALT/SGPT 15 U/L (7.0-40); AST/SGOT 20 U/L (<34); CALCIUM LEVEL 9.2 MG/DL (8.3-10.6); CARBON DIOXIDE LEVEL 28 MMOL/L (20-31); CHLORIDE LEVEL 106 MMOL/L (98-107); CHOLESTEROL LEVEL 280 MG/DL (<200); CHOLESTEROL RISK RATIO 2.46 (<5); CREATININE FOR GFR 0.62 MG/DL (0.70-1.30); GLOMERULAR FILTRATION RATE > 90.0 (>35); LDL CHOLESTEROL 155.1 MG/DL (<100); NON-HDL-C 166.5 MG/DL; POTASSIUM SERUM 4.1 MMOL/L (3.5-5.1); SODIUM LEVEL 144 MMOL/L (136-145); TRIGLYCERIDES LEVEL 57 MG/DL (<150)
[2025-10-20 18:03] LABS: BASO # 0.0 10^3/uL (0.0-0.2); BASO % 0.5 % (0.0-1.0); EOS # 0.1 10^3/uL (0.0-0.5); EOS % 1.0 % (0.0-3.0); LYMPH # 0.7 10^3/uL (1.5-5.0); LYMPH % 8.9 % (24.0-44.0); MONO # 0.6 10^3/uL (0.0-0.8); MONO % 7.8 % (2.0-8.0); NEUTROPHILS # 6.6 10^3/uL (1.5-8.5); NEUTROPHILS % 81.4 % (36.0-66.0); PLATELET COUNT, AUTOMATED 185 10^3/uL (150-450)
[2025-10-20 18:16] LABS: ESTIMATED AVERAGE GLUCOSE 114.0 MG/DL (60-110)
== END ==
LOC: M SFHCLERA 11:28
PROVIDERS: ATTEND Internal Medicine
DX: Z00.01 Encounter for general adult medical examination with abnormal findings (principal); I10 Essential (primary) hypertension; Z79.899 Other long term (current) drug therapy